=== PATIENT | female | born 1975 | race Caucasian/White ===

== ENCOUNTER 2016-11-15 14:27 | Emergency (ER) | payer OTHER ==
[~2016-11-15] VITALS: Wt 62.6 kg
[~2016-11-15 14:27] MED LIST: 'CLONIDINE0.1 MG PO; ADDERALL 10 MG10 MG PO; AMOXICILLIN500 MG PO; CATAPRES-TTS 10.1 MG PO; CATAPRES0.1 MG PO; CATAPRES0.2 MG PO; CLARITIN10 MG PO; CLONIDINE HYDR0.1 MG PO; CLONIDINE0.2 MG PO; DIFLUCAN150 MG PO; FLEXERIL10 MG PO; LABETALOL HCL100 MG PO; LISINOPRIL10 MG PO; MOTRIN800 MG PO; NKHM; NORVASC5 MG PO; VICODIN ES 7501 TAB PO; XANAX0.5 MG PO; ZITHROMAX Z PA250 MG PO; ZOFRAN ODT4 MG SL
[2016-11-15] MEDS ORDERED: LISINOPRIL-HYDR1 TA1 PO (14:34)
== END 2016-11-15 18:34 | disposition home or self-care (01) ==
LOC: ED 14:27
DX: S00.83XA Contusion of other part of head, initial encounter (principal); J01.00 Acute maxillary sinusitis, unspecified; H11.33 Conjunctival hemorrhage, bilateral; F17.200 Nicotine dependence, unspecified, uncomplicated; M54.6 Pain in thoracic spine; M54.2 Cervicalgia; Z79.899 Other long term (current) drug therapy; Y08.89XA Assault by other specified means, initial encounter; Y93.89 Activity, other specified; Y92.89 Other specified places as the place of occurrence of the external cause; Y99.9 Unspecified external cause status

== ENCOUNTER 2016-11-17 15:02 | Emergency (ER) | payer OTHER ==
[~2016-11-17] VITALS: Ht 162.5 cm; Wt 62.6 kg
[~2016-11-17 15:02] MED LIST changes: +LISINOPRIL-HYDR1 TA1 PO
[2016-11-17] MEDS ORDERED: PENICILLIN VK500 MG PO (15:17)
[2016-11-17] MEDS ORDERED: Peridex 473 ML473 ML PO (15:17)
== END 2016-11-17 16:07 | disposition left against medical advice (07) ==
LOC: ED 15:02
DX: K08.89 Other specified disorders of teeth and supporting structures (principal); R68.84 Jaw pain; R03.0 Elevated blood-pressure reading, without diagnosis of hypertension; F17.200 Nicotine dependence, unspecified, uncomplicated; F41.9 Anxiety disorder, unspecified; I10 Essential (primary) hypertension

== ENCOUNTER 2017-01-29 07:45 | Emergency (ER) | payer OTHER ==
[~2017-01-29] VITALS: Wt 59.0 kg
[~2017-01-29 07:45] MED LIST changes: +PENICILLIN VK500 MG PO; +Peridex 473 ML473 ML PO
[2017-01-29] MEDS ORDERED: PREDNISONE20 M1 PO (09:24)
[2017-01-29] MEDS ORDERED: CLARITIN10 MG PO (09:24)
[2017-01-29] MEDS ORDERED: PEPCID20 MG PO (09:24)
[2017-01-29] MEDS ORDERED: EPIPEN 2-PAK1 MG/ML IJ (09:24)
== END 2017-01-29 10:07 | disposition home or self-care (01) ==
LOC: ED 07:45
DX: T63.441A Toxic effect of venom of bees, accidental (unintentional), initial encounter (principal); L50.9 Urticaria, unspecified; I10 Essential (primary) hypertension; F17.200 Nicotine dependence, unspecified, uncomplicated; Z79.899 Other long term (current) drug therapy; Y92.9 Unspecified place or not applicable

== ENCOUNTER 2017-04-01 12:08 | Emergency (ER) | payer OTHER ==
[~2017-04-01] VITALS: Ht 160 cm; Wt 55.8 kg
[~2017-04-01 12:08] MED LIST changes: +EPIPEN 2-PAK1 MG/ML IJ; +PEPCID20 MG PO; +PREDNISONE20 M1 PO
[2017-04-01 12:45] LABS: BASO # 0.1 10*3/uL (0.0-0.1); BASO % 0.7 % (0.0-1.0); EOS # 0.1 10*3/uL (0.0-0.4); EOS % 1.5 % (1.0-4.0); HEMOGLOBIN 12.7 g/dl (12.0-16.0); LYMPH # 1.5 10*3/uL (1.3-4.4); LYMPH % 20.8 % (27.0-41.0); MEAN CELL VOLUME 93.6 fl (81.0-99.0); MEAN CORPUSCULAR HGB 31.3 pg (27.0-31.0); MEAN CORPUSCULAR HGB CONC 33.4 g/dl (33.0-37.0); MEAN PLATELET VOLUME 9.1 fl (9.6-12.3); MONO # 0.7 10*3/uL (0.1-1.0); MONO % 8.8 % (3.0-9.0); NEUT % 67.8 % (47.0-73.0); PLATELET COUNT AUTOMATED 257 10*3/uL (130-400); RED BLOOD COUNT 4.06 10*6/uL (4.10-5.10); RED CELL DISTRI WIDTH 12.4 % (0-14.5); WHITE BLOOD COUNT 7.4 10*3/uL (4.8-10.8)
[2017-04-01 12:53] LABS: BILIRUBIN NEGATIVE (NEGATIVE); BLOOD 3+ (NEGATIVE); CLARITY CLOUDY (CLEAR); COLOR YELLOW (YELLOW); GLUCOSE NEGATIVE (NEGATIVE); KETONE NEGATIVE (NEGATIVE); LEUKO ESTERASE NEGATIVE (NEGATIVE); NITRITE NEGATIVE (NEGATIVE); SPECIFIC GRAVITY 1.025 (1.005-1.030)
[2017-04-01 13:03] LABS: ALBUMIN 3.8 gm/dl (3.1-4.5); ALKALINE PHOSPHATASE 89 U/L (45-117); BUN 12 mg/dl (7-24); CHLORIDE 108 mmol/L (98-107); POTASSIUM 3.9 mmol/L (3.5-5.1); SGOT/AST 16 IU/L (3-35); SGPT/ALT 20 U/L (12-78); SODIUM 141 mmol/L (136-145); TOTAL PROTEIN 7.2 gm/dL (6.4-8.2)
[2017-04-01 13:05] LABS: BETA-HCG, QUANT < 1.0 mIU/mL (1-3)
[2017-04-01 13:14] LABS: MUCOUS 1+; RBC 16-20 rbc/hpf (0-2)
[2017-04-01 13:15] LABS: BACTERIA TRACE
== END 2017-04-01 15:54 | disposition home or self-care (01) ==
LOC: ED 12:08
PROVIDERS: Nurse Practitioner Family
DX: N93.9 Abnormal uterine and vaginal bleeding, unspecified (principal); F17.200 Nicotine dependence, unspecified, uncomplicated; Z79.899 Other long term (current) drug therapy

== ENCOUNTER 2017-11-03 00:57 | Emergency (ER) | payer SELFPAY ==
[~2017-11-03] VITALS: Ht 162.5 cm; Wt 58.1 kg
[2017-11-03] MEDS ORDERED: 'CLONIDINE0.1 MG PO (01:24)
[2017-11-03] MEDS ORDERED: LISINOPRIL20 MG PO (01:24)
[2017-11-03] MEDS ORDERED: HYDR12.5C PO (01:24)
== END 2017-11-03 04:04 | disposition left against medical advice (07) ==
LOC: ED 00:57
DX: I10 Essential (primary) hypertension (principal); F17.200 Nicotine dependence, unspecified, uncomplicated; Z79.899 Other long term (current) drug therapy; Z88.0 Allergy status to penicillin

== ENCOUNTER 2017-12-13 17:51 | Emergency (ER) | payer SELFPAY ==
[~2017-12-13] VITALS: Ht 160 cm; Wt 58.1 kg
[~2017-12-13 17:51] MED LIST changes: +HYDR12.5C PO; +LISINOPRIL20 MG PO
[2017-12-13] MEDS ORDERED: PREDNISONE20 M1 PO (19:16)
[2017-12-13] MEDS ORDERED: ROBITUSSIN DM 105 ML PO (19:16)
[2017-12-13] MEDS ORDERED: ZITHROMAX250 MG PO (19:16)
== END 2017-12-13 19:19 | disposition home or self-care (01) ==
LOC: ED 17:51
DX: H61.21 Impacted cerumen, right ear (principal); J20.9 Acute bronchitis, unspecified; Z88.0 Allergy status to penicillin; Z79.899 Other long term (current) drug therapy

== ENCOUNTER 2018-11-25 13:52 | Emergency (ER) | payer SELFPAY ==
[~2018-11-25] VITALS: Ht 162.5 cm; Wt 63.5 kg
[~2018-11-25 13:52] MED LIST changes: +ROBITUSSIN DM 105 ML PO; +ZITHROMAX250 MG PO
[2018-11-25] MEDS ORDERED: CLINDAMYCIN HC300 MG PO (14:23)
== END 2018-11-25 14:33 | disposition home or self-care (01) ==
LOC: ED 13:52
DX: K04.7 Periapical abscess without sinus (principal); F17.200 Nicotine dependence, unspecified, uncomplicated; Z88.0 Allergy status to penicillin